=== PATIENT | female | born 1995 | race Caucasian/White ===

== ENCOUNTER 2016-07-15 15:09 | Emergency (ER) | payer OTHER ==
[~2016-07-15] VITALS: Ht 162.6 cm; Wt 69.9 kg
[2016-07-15] MEDS ORDERED: FLUORESCEIN OPHTH 1 MG STRIP OS ONE (15:30)
[2016-07-15] MEDS ORDERED: TETRACAINE 0.5% OPHTH SOLN 4ML OS ONE (15:30)
[2016-07-15] MEDS ORDERED: ERYTOIN8 OS (16:57)
[2016-07-15 17:03] VITALS: BP 124/80
== END 2016-07-15 17:04 | disposition home or self-care (01) ==
LOC: M ED 16:09
DX: T52.8X1A Toxic effect of other organic solvents, accidental (unintentional), initial encounter (principal); X58.XXXA Exposure to other specified factors, initial encounter; Y92.019 Unspecified place in single-family (private) house as the place of occurrence of the external cause; Y93.E8 Activity, other personal hygiene; Y99.8 Other external cause status; H10.212 Acute toxic conjunctivitis, left eye

== ENCOUNTER 2019-12-24 09:05 | Outpatient (CLI) | payer OTHER ==
[~2019-12-24] VITALS: Ht 162.6 cm; Wt 87.5 kg
[~2019-12-24 09:05] MED LIST: ERYTOIN8 OS
[2019-12-24 09:32] VITALS: BP 118/73
[2019-12-24] MEDS ORDERED: PRENTAB9 PO (09:36)
--- NOTE | 2019-12-24 13:59 | IPNPDOC ---
Text Note Date of Service The patient was seen on 12/24/19. NOTE S: Nelia is a 24yo at 37+1wks, EDC [id number], who presents to L&D for ROM check. Pt states she woke up to a soaked bed at 0730 this morning with some spotting. She denies recent intercourse, denies feeling any contractions. complicated by gestational thrombocytopenia. GBS negative O: VSS, afebrile, normotensive FHR 140s, moderate variability, + accels, no decels noted CTX by TOCO: q2-3 minutes, mild by palpation, pt not feeling SSE: no pooling, no bleeding noted VE: 2/40/-2 Ferning negative DICK 8.4cm (appropriate pockets in all 4 quadrants) A: 24yo at 37+1wks, ROM not found, adequate fluid noted, category I FHT. P: Pt discharged home with labor/danger/ROM/return precautions. Pt to f/u in clinic at 38 weeks for next RAGHAVENDRA or sooner PRN VS,Fishbone, I+O VS, Fishbone, I+O Vital Signs Date Time Temp Pulse Resp B/P (MAP) Pulse Ox O2 Delivery O2 Flow Rate FiO2 12/24/19 09:32 98.5 80 20 118/73 (88) NATHALIA CALVILLO CNM Dec 24, 2019 13:59
== END 2019-12-24 10:37 | disposition home or self-care (01) ==
LOC: M LDO 09:05
PROVIDERS: ATTEND Registered Nurse Maternal Newborn
DX: O26.893 Other specified pregnancy related conditions, third trimester (principal); Z3A.37 37 weeks gestation of pregnancy
CPT/HCPCS: 59025; 76815; G0378; G0463

== ENCOUNTER 2019-12-26 15:58 | Inpatient (IN) | payer OTHER ==
[2019-12-26] VITALS (13 sets, daily range): BP systolic 102–125; BP diastolic 57–87
[~2019-12-26] VITALS: Ht 162.6 cm; Wt 87.0 kg
[~2019-12-26 15:58] MED LIST changes: +PRENTAB9 PO
[2019-12-26] MEDS ORDERED: LACTATED RINGER'S 1000 ML IV ONE (18:00)
[2019-12-26] MEDS ORDERED: OXYTOCIN DRIP 30 UNITS in IV 1 EA IV SCH (18:00)
--- NOTE | 2019-12-26 18:00 | HPEPDOC ---
Obstetrical History & Physical General Date of Admission Dec 26, 2019 at 17:28 Primary Care Physician: Saturnino Glasgow MD History of Present Illness 12/26/2019 1730 HRS . PATIENT COMPLAINT SROM CLEAR NO CONTRACTION NO VAGINAL BLEEDING. 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 Past Medical History Surgical History: Denies/None, [place] teeth Family History Significant Family History: No pertinent family hx Social History Marital Status: Family situation: Spouse/partner home Psychosocial History: No pertinent psych hx * Smoker: non-smoker Alcohol: Denies Drugs: denies Abuse Violence Screening Have you been hit/kicked/slapp: No Have you been sexually assault: No Imunizations Tdap status: current Influenza Status: current Allergies Coded Allergies: No Known Allergies (Verified Allergy, Unknown, 12/24/19) Medications Scheduled No.137/Iron/Folic Acd ( Vitamin Tablet) 1 Each Tablet, 1 TAB PO DAILY Physical Examination Physical Examination GENERAL: Alert and oriented times three. BREAST: . ABDOMEN: Gravid and non-tender to touch. FETUS: Is vertex (VTX) by sterile vaginal examination (SVE), fetus is vertex (VTX) by Osbaldo. HEART RATE: Regular rate and rhythm. LUNGS: Clear to auscultation (CTA). EXTREMITIES: No edema. No clonus. Vital Signs/I&O Vital Signs Date Time Temp Pulse Resp B/P (MAP) Pulse Ox O2 Delivery O2 Flow Rate FiO2 12/26/19 16:22 98.9 76 18 124/75 (91) Room Air Pertinent Laboratoy Data Blood Type: O+ HIV: Negative Hepatitis B: Negative Rapid Plasma Reagin: Nonreactive Rubella: Immune Varicella: Immune Chlamydia/Gonorrhea: Negative Group B Streptococcus: Negative Anatomy Ultrasound Placenta Location: Anterior Normal Anatomy: Yes Placenta Previa: No Vaginal Examination Dilation: 4 cm Effacement: 50% Station: -3 Cervical Consistency: Soft Cervical Position: Middle Presentation: Cephalic presentation Assessment Variability: Moderate Accelerations: Present Decelerations: None Tocometer Contractions: No Assessment/Plan Assessment 24-year-old (G)1 para (P)0 at 37.2 weeks by 15-week ultrasound. Presents to Labor and Delivery SROM Plan Admit and orient. Behavior Management Specialist and consent. Diet: REGULAR Group B Streptococcus (GBS) negative Labs and intravenous (IV) per unit protocol. Counseled on Pitocin and induction of labor (IOL). Lactated Ringers (LR): Bolus 1000 ML PRE EPIDURAL mL, then at 125 mL/hr. Anticipate [normal spontaneous delivery ()]. C-S as appropriate. REVIEWED CONSENT FOR DELIVERY IS DELIVERY THROUGH VAGINA WITH POSSIBLE ASSISTANCE OF FORCEPS OR VACUUM NECESSARY FOR REASONS WHEN SPONTANEOUS ACTIVE PUSHING WILL NOT ACCOMPLISH DELIVERY. POSSIBLE NEED FOR EPISIOTOMY AND OR REPAIR OF VAGINAL LACERATIONS AND OR CERVICAL LACERATIONS, EMERGENCY CAN OCCUR THAT REQUIRE IMMEDIATE CS FOR OR MATERNAL REASONS AND WOULD BE SAFER THAN CONTINUING TO LABOR. RISKS OF C/S ARE HEMORRHAGE INFECTION PERFORATION REOPERATION NEED FOR BLOOD TRANSFUSION REMOTE HYSTERECTOMY FOR LIFE THREATENING BLEEDING. ALSO RISK OF SCRATCHES HEMATOMA OR INTRACRANIAL BLEED . OTHER INCLUDE TACHYSYSTOLE UTERINE RUPTURE INJURY TO BOWEL OR BLADDER EXPRESSED UNDERSTANDING . SAFE TO PROCEED Saturnino Glasgow MD Dec 26, 2019 17:53
[2019-12-26 18:42] LABS: HEMATOCRIT 40.1 % (36.0-47.0); HEMOGLOBIN 13.1 g/dl (12.0-15.5); MEAN CORPUSCULAR HEMOGLOBIN 30.5 pg (27.0-33.0); MEAN CORPUSCULAR HGB CONC 32.7 g/dl (32.0-36.5); MEAN CORPUSCULAR VOLUME 93.3 fl (80.0-96.0); PLATELET COUNT, AUTOMATED 124 10^3/uL (150-450); WHITE BLOOD COUNT 12.4 10^3/uL (4.0-10.0)
[2019-12-26] MEDS: LR 1,000 ML IV SCH (19:46)
[2019-12-26] MEDS ORDERED: FENTANYL 2MCG/ML ROPIVACAINE 0.2% IN 0.9% NACL 100ML IVBAG As Ordered ONE (23:48)
[2019-12-27] VITALS (34 sets, daily range): BP systolic 88–144; BP diastolic 50–78
[2019-12-27] MEDS ORDERED: ePHEDrine SULFATE 25 MG/5 ML(5MG/ML) SYRINGE As Ordered ONE (01:22)
[2019-12-27] MEDS ORDERED: NALOXONE INJ 0.4MG/1ML VIAL (J2310 PER 1MG) IV PRN (01:45)
[2019-12-27] MEDS ORDERED: EPIDURAL COMMENT XX SCH (01:45)
[2019-12-27] MEDS ORDERED: FENTANYL/ROPIVACAINE/NACL BAG 100 ML EPIDURAL SCH (01:45)
[2019-12-27] MEDS ORDERED: diphenhydrAMINE 50MG/ML VIAL (J1200) IV PRN (01:45)
[2019-12-27] MEDS ORDERED: REFRIGERATOR IV KEYS XX PRN (01:45)
[2019-12-27] MEDS ORDERED: ePHEDrine SULFATE 25 MG/5 ML(5MG/ML) SYRINGE IV PRN (01:45)
[2019-12-27] MEDS ORDERED: ONDANSETRON 4MG/2ML VIAL IV PRN (01:45)
[2019-12-27] MEDS ORDERED: LACTATED RINGER'S 1000 ML IV PRN (01:45)
[2019-12-27] MEDS ORDERED: EPIDURAL/PCA KEYS XX PRN (01:45)
[2019-12-27] MEDS ORDERED: LR 1,000 ML IV SCH (04:41)
[2019-12-27] MEDS ORDERED: METHYLERGONOVINE MALEATE 0.2 MG TAB PO PRN (04:45)
[2019-12-27] MEDS ORDERED: IBUPROFEN 600MG TAB PO PRN (04:45)
[2019-12-27] MEDS ORDERED: IBUPROFEN 800 MG TAB PO PRN (04:45)
[2019-12-27] MEDS ORDERED: OXYTOCIN DRIP 30 UNITS in IV 1 EA IV ONE (04:45)
[2019-12-27] MEDS ORDERED: DOCUSATE SODIUM 100 MG CAP PO PRN (04:45)
[2019-12-27] MEDS ORDERED: MOM 30ML SUSPENSION UDC PO PRN (04:45)
[2019-12-27] MEDS ORDERED: OXYTOCIN INJ 10 UNITS/ML VIAL (J2590) IV ONE (04:45)
[2019-12-27] MEDS ORDERED: MEASLES,MUMPS,RUBELLA VACCINE INJ (MMR-II) (90707) SC SCH (04:45)
[2019-12-27] MEDS ORDERED: ACETAMINOPHEN 500 MG TAB PO PRN (04:45)
[2019-12-27] MEDS ORDERED: ANUSOL HC CREAM 30GM TOP PRN (04:45)
[2019-12-27] MEDS ORDERED: DIBUCAINE 1% OINTMENT 30GM TOP PRN (04:45)
[2019-12-27] MEDS ORDERED: RHOGAM 300 MCG (1500 IU) INJ (J2790) IM SCH (04:45)
[2019-12-27 04:49] LABS: CORD GAS ABE V -8.5; CORD GAS O2 SAT V 54.9 %; CORD GAS PCO2 V 45.9 mmHg; CORD GAS PH V 7.234 UNITS; CORD GAS PO2 V 26.4 mmHg; CORD GAS SBC V 16.8 MEQ/L; CORD GAS TCO2 V 20.4 MEQ/L
[2019-12-27 04:51] LABS: CORD GAS ABE A -9.4; CORD GAS HCO3 A 20.4 MEQ/L; CORD GAS O2 SAT A 23.4 %; CORD GAS PCO2 A 59.8 mmHg; CORD GAS PH A 7.151 UNITS; CORD GAS PO2 A 16.9 mmHg; CORD GAS SBC A 15.5 MEQ/L; CORD GAS TCO2 A 22.2 MEQ/L
--- NOTE | 2019-12-27 04:57 | IPNPDOC ---
Text Note Date of Service The patient was seen on 12/27/19. NOTE 12/27/19 0130 am review re post epidural small forewaters AROM clear 8 cm well applied pop noted category 1 strip . slight hypotension post epidural no issues safe to proceed VS,Fishbone, I+O VS, Fishbone, I+O Vital Sign - Last 24 Hours 12/26/19 12/26/19 12/26/19 12/26/19 16:22 18:13 19:24 19:45 Temp 98.9 98.6 98.3 98.4 Pulse 76 83 67 73 Resp 18 18 18 18 B/P (MAP) 124/75 (91) 110/57 (74) 116/57 (76) 116/63 (80) O2 Delivery Room Air 12/26/19 12/26/19 12/26/19 12/26/19 19:54 20:24 20:55 21:24 Pulse 93 80 69 91 Resp 18 B/P (MAP) 117/73 (88) 102/57 (72) 106/58 (74) 119/69 (86) 12/26/19 12/26/19 12/26/19 12/26/19 22:02 22:25 22:55 23:39 Pulse 73 70 80 77 Resp 18 18 18 18 B/P (MAP) 115/68 (84) 115/59 (77) 125/87 (100) 108/59 (75) 12/26/19 12/27/19 12/27/19 12/27/19 23:54 00:14 00:20 00:27 Pulse 81 86 85 82 Resp 18 18 18 18 B/P (MAP) 120/62 (81) 117/58 (77) 108/71 (83) 127/77 (94) 12/27/19 12/27/19 12/27/19 12/27/19 00:29 00:34 00:35 00:39 Pulse 78 80 98 87 Resp 18 18 18 18 B/P (MAP) 136/75 (95) 134/78 (96) 139/76 (97) 124/66 (85) 12/27/19 12/27/19 12/27/19 12/27/19 00:44 00:49 00:55 00:59 Pulse 86 106 100 81 Resp 18 18 18 18 B/P (MAP) 120/66 (84) 113/57 (75) 113/64 (80) 97/53 (68) 12/27/19 12/27/19 12/27/19 12/27/19 01:06 01:09 01:14 01:19 Pulse 89 80 83 160 Resp 18 18 18 18 B/P (MAP) 144/52 (82) 93/52 (66) 92/50 (64) 89/52 (64) 12/27/19 12/27/19 12/27/19 12/27/19 01:24 01:29 01:34 01:40 Pulse 86 80 80 105 Resp 18 18 18 18 B/P (MAP) 88/54 (65) 95/54 (68) 90/54 (66) 100/68 (79) 12/27/19 12/27/19 12/27/19 12/27/19 01:45 01:49 01:54 01:59 Pulse 82 78 88 80 Resp 18 18 18 18 B/P (MAP) 107/64 (78) 105/57 (73) 108/60 (76) 109/58 (75) 12/27/19 12/27/19 12/27/19 12/27/19 02:04 02:05 02:35 03:05 Pulse 93 86 82 78 Resp 18 18 18 18 B/P (MAP) 113/60 (77) 104/55 (71) 101/54 (70) 103/55 (71) 12/27/19 12/27/19 04:34 04:49 Pulse 100 90 Resp 18 18 B/P (MAP) 117/60 (79) 101/57 (72) Laboratory Tests 12/26/19 17:52 Vital Signs Date Time Temp Pulse Resp B/P (MAP) Pulse Ox O2 Delivery O2 Flow Rate FiO2 12/26/19 19:54 93 18 117/73 (88) 12/26/19 19:45 98.4 12/26/19 16:22 Room Air Saturnino Glasgow MD Dec 27, 2019 04:50
[2019-12-27] MEDS ORDERED: OXYTOCIN INJ 10 UNITS/ML VIAL (J2590) As Ordered ONE (06:18)
[2019-12-27] MEDS: PRENATAL VITAMINS CHEWABLE TABLET PO SCH (08:37)
--- NOTE | 2019-12-27 14:56 | DN ---
DATE OF DELIVERY: 12/27/2019 This lady is a 24-year-old, 1, admitted with spontaneous rupture of membranes at 40 weeks of gestation. She had an epidural in place. She delivered a live female infant in the POP position, weighing 6 pounds 2 ounces, 2790 grams, Apgars of 7 and 9 at one and five minutes respectively. Cord around the neck times one. Arterial venous pH was performed and they are still not available yet. She sustained a small first degree tear. Placenta delivered spontaneously thereafter; three vessel cord, membranes and tissues intact. Uterus contracted well down on Pitocin. The anterior, posterior and lateral perez were clean. Sphincter was tight. The first degree was repaired with 2-0 Vicryl and [id number]. Reevaluation; minimal blood loss 200 cc. Patient and baby tolerated the procedure well. LUDWIN
[2019-12-27] MEDS ORDERED: ceFAZolin 2 GM/D5W 50 ML IV BAG (J0690 PER 500MG) As Ordered ONE (22:24)
--- NOTE | 2019-12-28 04:34 | IPNPDOC ---
Progress Note Date of Service: Dec 28, 2019 Day#: 1 Progress Note SUBJECT: Nelia is a 24yo PPD#1 s/p doing well day #1. She has been ambulating, voiding spontaneously without issue and tolerating regular diet. Breast feeding without issue. Reports lochia is decreasing. Pain controlled on motrin/tylenol. OBJECTIVE: VITAL SIGNS: Within normal limits, afebrile. Alert and oriented times three. Abdomen: Fundus firm at U-1. Soft, NTTP. Small lochia. Ext: no edema, no calf tenderness ASSESSMENT: Nelia is a 24yo PPD#1 s/p doing well day #1. Vitals within normal limits, afebrile, hemodynamically stable with no evidence of infection. PLAN: 1. Discharge to home tomorrow 2. Tylenol and Motrin for pain. 3. Encourage breast feeding and ambulation. 4. Encourage regular diet as tolerated 5. Monitor vitals and lochia per routine. VS, I&O, 24H, [facility] Vital Signs/I&O Vital Signs Date Time Temp Pulse Resp B/P (MAP) Pulse Ox O2 Delivery O2 Flow Rate FiO2 12/27/19 18:00 99.3 71 18 113/65 (81) 98 Room Air I&O- Last 24 Hours up to 6 AM 12/28/19 06:00 Intake Total 3015 ml Output Total 1400 ml Balance 1615 ml Laboratory Data 24H LABS Laboratory Tests 2 12/27/19 04:44: Cord Arterial Blood pH 7.151, Cord Arterial Blood PCO2 59.8, Cord Arterial Blood PO2 16.9, Cord Arterial Blood HCO3 20.4, Cord Arterial Blood Total CO2 22.2, Cord Arterial Blood Base Excess -9.4, Cord Arterial Base Excess (Standard 15.5, Cord Arterial Bld Oxygen Saturation 23.4, Cord Venous Blood pH 7.234, Cord Venous Blood PCO2 45.9, Cord Venous Blood PO2 26.4, Cord Venous Blood HCO3 19.0, Cord Venous Blood Total CO2 20.4, Cord Venous Base Excess (Actual) -8.5, Cord Venous Base Excess (Standard) 16.8, Cord Venous Blood Oxygen Saturation 54.9 RENNY BOSS DO Dec 28, 2019 04:34
[2019-12-28 06:00] VITALS: BP 103/57
[2019-12-28 07:05] LABS: HEMATOCRIT 35.3 % (36.0-47.0); HEMOGLOBIN 11.6 g/dl (12.0-15.5); MEAN CORPUSCULAR HEMOGLOBIN 31.2 pg (27.0-33.0); MEAN CORPUSCULAR HGB CONC 32.9 g/dl (32.0-36.5); MEAN CORPUSCULAR VOLUME 94.9 fl (80.0-96.0); PLATELET COUNT, AUTOMATED 104 10^3/uL (150-450); RED BLOOD COUNT 3.72 10^6/uL (4.00-5.40); WHITE BLOOD COUNT 12.4 10^3/uL (4.0-10.0)
[2019-12-28] MEDS: LR 1,000 ML IV SCH (07:26)
[2019-12-28] MEDS: PRENATAL VITAMINS CHEWABLE TABLET PO SCH (08:59)
[2019-12-28] MEDS: ACETAMINOPHEN TAB 650MG DOSE (2X325MG) PO PRN (08:59)
[2019-12-28] MEDS ORDERED: BOOSTRIX/ADACEL VACCINE (DIPHTH/PERTUSS/ACELL/TETANUS) 0.5ML SYR IM ONE (09:00)
[2019-12-28] MEDS ORDERED: INFLUENZA QUADRIVALENT PF VACCINE 0.5ML SYRINGE IM ONE (09:00)
[2019-12-28 18:12] VITALS: BP 118/62
[2019-12-29 06:00] VITALS: BP 105/78
[2019-12-29] MEDS ORDERED: IBUP80TA PO (06:30)
[2019-12-29] MEDS ORDERED: DIBU10OI TOP (06:30)
[2019-12-29] MEDS ORDERED: DOCU100C16 PO (06:30)
[2019-12-29] MEDS: ACETAMINOPHEN TAB 650MG DOSE (2X325MG) PO PRN (08:14)
[2019-12-29] MEDS: PRENATAL VITAMINS CHEWABLE TABLET PO SCH (08:14)
--- NOTE | 2019-12-31 12:43 | DSES ---
DATE OF ADMISSION: 12/26/2019 DATE OF DISCHARGE: 12/29/2019 BRIEF HISTORY: This is a 24-year-old 1, para 1, admitted at 40 weeks gestation with spontaneous rupture of membranes, had epidural in place, delivered live female infant weighing 6 pounds 2 ounces, 2790 gm, Apgars 7 and 9 at 1 and 5 minutes respectively. She delivered in the POP position with cord around the neck x1. Arterial pH 7.15, base excess -9.4, venous pH 7.23, base excess -9.5. She had a 1st degree tear which was repaired in the usual fashion. Her admitting hemoglobin was 13.1, hematocrit 40.1 and platelets were 124. Discharge hemoglobin 11.6, hematocrit 35.3 and platelets 104. EXAM: Blood pressure this morning is 105/78, respirations 18, pulse 77, temperature 99.0. The rest of the examination unremarkable. Normocephalic, atraumatic. Neck full range of motion. Pupils equal and reactive to light. Distal pulses symmetric, no evidence of DVT, PE or superficial phlebitis. Chest is clear bilateral at bases, no wheezes or rhonchi. No CVA tenderness. Abdomen is soft, four quadrant bowel sounds are noted. Uterus 2 below, lochia is moderate. Perineum is healing. No rashes, lesions, or pruritus, no arthralgias or myalgias, no complaint of joint pain, no complaint of cough, wheeze, shortness of breath, or dyspnea on exertion. No nausea or vomiting, diarrhea, or constipation. No urgency or frequency. In summary, we have a term gestation delivered live female . Plan is to pear picker her medications at [facility]. A six week checkup with [facility]. All questions were answered. Twenty minute discussion. The patient was discharged improved. LUDWIN
== END 2019-12-29 11:05 | disposition home or self-care (01) | DRG 807 ==
LOC: M LDO 15:58 → M LDI 17:28 → M OBS 12-27 07:00
PROVIDERS: ADMIT Obstetrics & Gynecology; ATTEND Obstetrics & Gynecology
PROC: 10E0XZZ Delivery of Products of Conception, External Approach (ICD-10-PCS; principal; 2019-12-27)
PROC: 0HQ9XZZ Repair Perineum Skin, External Approach (ICD-10-PCS; 2019-12-27)
DX: O69.81X0 Labor and delivery complicated by cord around neck, without compression, not applicable or unspecified (principal); Z37.0 Single live birth; Z3A.37 37 weeks gestation of pregnancy; O70.0 First degree perineal laceration during delivery